=== PATIENT | female | born 1970 | race Caucasian/White ===

== ENCOUNTER 2021-05-15 19:29 | Emergency (ER) | payer OTHER, SELFPAY ==
[2021-05-15 19:33] VITALS: BP 140/84; PULSE 88; RESP 18; TEMP 36.6; O2SAT 100
[2021-05-15 20:03] LABS: COVID19 -Nasal RAPID POSITIVE (Negative)
--- NOTE | 2021-05-15 21:03 | ED.RECABL ---
HPI - Recheck/Abnormal Lab/Rx General Chief Complaint: Recheck/Abnormal Lab/Rx Stated Complaint: Needs a COVID Test Time Seen by Provider: 05/15/21 21:02 Source: patient Mode of arrival: Ambulatory Limitations: no limitations History of Present Illness HPI narrative: This is a healthy 50-year-old female who presents for COVID testing. Patient denies any medical issues. She has had both her COVID vaccinations the second most recently in November 2020. Patient had presented to a local [facility] and had prelim rapid covid test that was positive. She had which she believes was a PCR test Sunday which was negative. Patient denies any symptoms. She lives in [place]. Review of Systems Review of Systems ROS Unobtainable: All systems reviewed & are unremarkable except as noted in HPI and below Exam Narrative Exam Narrative: GENERAL: Alert and oriented x three, female in mild distress. HEENT: Head normocephalic, atraumatic, EOMI, pupils reactive, face symmetric, moist mucous membranes NECK: Supple, full range of motion CARDIOVASCULAR: Regular rate and rhythm without murmurs, rubs or gallops. RESPIRATORY: Breath sounds equal bilaterally, no wheezes rales or rhonchi. ABDOMEN: Soft, nontender. Normoactive bowel sounds all 4 quadrants. No guarding or rebound, rigidity, no mass : No CVA tenderness EXTREMITIES: Normal range of motion. Normal gait. Neurovascularly intact NEUROLOGICAL: Cranial nerves II through XII grossly intact. Moving all extremities SKIN: Warm, dry, no petechiae, no rashes or lesions. Initial Vital Signs Initial Vital Signs: Vital Signs Temperature 97.9 F 05/15/21 19:33 Pulse Rate 88 05/15/21 19:33 Respiratory Rate 18 05/15/21 19:33 Blood Pressure 140/84 05/15/21 19:33 Pulse Oximetry 100 05/15/21 19:33 Course Orders Ordered: ED Orders 05/15/21 19:44 COVID19 -Nasal swab/Pre-Proc Stat Vital Signs Vital signs: Vital Signs - 8 hr 05/15/21 19:33 Temperature 97.9 F Pulse Rate 88 Respiratory Rate 18 Blood Pressure 140/84 Pulse Oximetry 100 MDM - Recheck/Abnormal Lab/Rx Lab Data Labs: Lab Results 05/15/21 Range/Units 19:44 SARS-CoV-2 (PCR) Positive H (Negative) MDM Narrative Medical decision making narrative: This is a 50-year-old female healthy asymptomatic female with COVID vaccination x2 with reassuring vitals and is positive for COVID PCR testing. Patient is currently asymptomatic. She had a rapid test which was positive today which is part of the protocol for a kayak trip she was supposed to take part of. She presented for PCR testing and is positive today. Discharge Plan Departure Patient Disposition: Home Clinical Impression: COVID-19 virus infection Instructions: DI for COVID-19 (Suspected or Confirmed ) Activity Restrictions/Additional Instructions: *You have been diagnosed with COVID infection If you wish you may obtain a pulse oximeter for use at home to monitor. Please return to the ER if your pulse oximeter shows an O2 saturation less than 92%. *What to do: * per recommendations from the CDC and the [facility] Department of Health * stay home except to get medical care. Restrict activities outside your home, except for getting medical care. Do not go to work, school, or public areas. Avoid using public transportation, ride sharing, or taxis. * separate yourself from other people in your home. * call ahead before visiting your doctor * Wear a face mask * Cover your coughs and sneezes * Clean your hands often * Avoid sharing household items * Clean all high-touch services every day * Monitor your symptoms and seek prompt medical attention if your illness is worsening, particularly with difficulty in breathing. Discussed continuing home isolation * for individuals with symptoms who are confirmed or suspected cases of COVID-19 and are directed to care for themselves at home, discontinue home isolation under the following conditions: 1. At least 72 hours have passed since recovery, defined as resolution of fever without the use of fever reducing medications, and improvement in respiratory symptoms (cough, shortness of breath) AND, 2. At least 7 days have passed since symptoms 1st appeared Individuals with laboratory confirmed COVID-19 who have not had any symptoms may discontinue home isolation when at least 7 days have passed since the date of their 1st COVID-19 diagnostic test and have had no subsequent illness
== END 2021-05-15 21:17 | disposition home or self-care (01) ==
PROVIDERS: Emergency Provider Emergency Medicine
DX: U07.1 COVID-19 (principal)
CPT/HCPCS: 87635; 99281; 99282; C9803